=== PATIENT | male | born 1945 | race Caucasian/White ===

== ENCOUNTER 2019-10-04 17:03 | Inpatient (IN) | payer OTHER ==
[~2019-10-04] VITALS: Ht 167.6 cm; Wt 59.0 kg
[2019-10-04] MEDS ORDERED: SYNTHROID50 MCG (17:35)
[2019-10-04] MEDS ORDERED: DUOPA 4.63 MG-100 ML (17:36)
[2019-10-04] MEDS ORDERED: [UNRECOGNIZED DRUG - OTHER] (17:37)
[2019-10-20] MEDS ORDERED: NIFEDIPINE ER30 MG PO (09:54)
[2019-10-20] MEDS ORDERED: CARBIDOPA-LEVO1 EA11 NGT ×2 (09:54→10:06)
== END 2019-10-20 14:07 | disposition home or self-care (01) | DRG 177 ==
LOC: ER 17:03 → SEC-K 19:11 → MEDJ 20:45
PROVIDERS: ADMIT Internal Medicine
PROC: BW21ZZZ Computerized Tomography (CT Scan) of Abdomen and Pelvis (ICD-10-PCS; 2019-10-04)
PROC: BW28ZZZ Computerized Tomography (CT Scan) of Head (ICD-10-PCS; 2019-10-04)
PROC: BW24ZZZ Computerized Tomography (CT Scan) of Chest and Abdomen (ICD-10-PCS; 2019-10-04)
PROC: 4A033R1 Measurement of Arterial Saturation, Peripheral, Percutaneous Approach (ICD-10-PCS; 2019-10-06)
PROC: 0DH673Z Insertion of Infusion Device into Stomach, Via Natural or Artificial Opening (ICD-10-PCS; principal; 2019-10-08)
PROC: BT43ZZZ Ultrasonography of Bilateral Kidneys (ICD-10-PCS; 2019-10-10)
DX: J69.0 Pneumonitis due to inhalation of food and vomit (principal); G92 Toxic encephalopathy; K92.0 Hematemesis; N13.39 Other hydronephrosis; G20 Parkinson's disease; E03.9 Hypothyroidism, unspecified; G24.9 Dystonia, unspecified; Z93.1 Gastrostomy status; R09.02 Hypoxemia; Z74.01 Bed confinement status; R13.19 Other dysphagia; T50.995A Adverse effect of other drugs, medicaments and biological substances, initial encounter